=== PATIENT | female | born 1960 | race Two or more races ===

== ENCOUNTER 2016-11-12 14:24 | Emergency (ER) | payer MEDICAID ==
[~2016-11-12] VITALS: Ht 160 cm; Wt 63.5 kg
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
[2016-11-12 14:55] VITALS: BP 165/54
--- NOTE | 2016-11-12 16:23 | Diagnostic Imaging Report ---
Indication: PAIN Technique: Spiral acquisitions obtained through the cervical spine. No IV contrast utilized. Multiplanar reconstructions were generated. Total dose length product 268 mGycm. CTDIvol(s) 12 mGy. Dose reduction achieved using automated exposure control Comparison: None Findings: The bony alignment is normal. No acute fractures. No dislocations. Vertebral body heights are preserved. 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 The vertebral bodies and posterior elements of C2 and C3 are fused. There is partial ankylosis of the C5-6 disc, and complete fusion of the C5-6 facets. At C4-5, there is central posterior disc protrusion. This results in mild narrowing of the spinal canal, to 9 mm minimum AP dimension, slight impingement on the anterior aspect of the cord. There is mild bilateral neural foraminal stenosis, primarily due to facet degeneration. The disc space is preserved At C7-T1, there is mild narrowing of the left neural foramen. No significant disc bulge or protrusion or spinal stenosis. At the remaining levels, no significant disc bulge or protrusion, spinal stenosis, or neural foraminal stenosis. Abundant and prominent anterior and posterior triangle lymph nodes are seen bilaterally, measuring up to 16 mm long axis dimension. The patient is edentulous. Lung apices are clear. The thyroid is unremarkable. Impression: No acute bony trauma Multilevel segmentation anomalies, as described above Mild degenerative changes, as detailed level by level basis above Nonspecific prominent and abundant bilateral cervical lymph nodes. Correlate with clinical findings The CT scanner at [facility] is accredited by the [employer] and the scans are performed using protocols designed to limit radiation exposure to as low as reasonably achievable to attain images of sufficient resolution adequate for diagnostic evaluation.
--- NOTE | 2016-11-12 17:08 | Diagnostic Imaging Report ---
Indications: Head trauma, pain Technique: Spiral acquisitions obtained through the brain. Angled axial and coronal 5 x 5 mm slices were reconstructed. Total dose length product 1407 mGycm. CTDI vol(s) 70 mGy. Dose reduction achieved using automated exposure control Comparison: None Findings: There is bilateral frontal scalp soft tissue swelling. This extends to near the vertex No acute hemorrhage or edema. No mass effect nor midline shift. Normal finn-white differentiation. There is a 9 mm ossified lesion projecting off the inner table of the right posterior frontal skull, not resulting in any significant mass effect. The calvarium is intact. As well as orbits and sinuses are unremarkable. There is minimal right mastoid opacification. Impression: Negative for acute intracranial bleed or mass effect Evidence of right frontal scalp soft tissue trauma 9 mm ossific extra-axial lesion adjacent to the intertable of the right posterior frontal skull. 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
[2016-11-12] MEDS ORDERED: TYLENOL EXTRA500 MG ORAL (17:36)
[2016-11-12 18:19] VITALS: BP 158/57
[2016-11-12 19:21] VITALS: BP 165/54
== END 2016-11-12 18:00 | disposition home or self-care (01) ==
LOC: EDBD 14:24 → EMR 15:01
DX: S00.531A Contusion of lip, initial encounter (principal); S00.83XA Contusion of other part of head, initial encounter; V49.50XA Passenger injured in collision with unspecified motor vehicles in traffic accident, initial encounter; Y93.9 Activity, unspecified; Y92.414 Local residential or business street as the place of occurrence of the external cause; E11.9 Type 2 diabetes mellitus without complications; M50.221 Other cervical disc displacement at C4-C5 level; Z88.6 Allergy status to analgesic agent
CPT/HCPCS: 70450; 72125; 99284

== ENCOUNTER 2017-06-14 12:09 | Inpatient (IN) | payer MEDICAID ==
[~2017-06-14] VITALS: Ht 160 cm; Wt 72.1 kg
[2017-06-14] VITALS (8 sets, daily range): BP systolic 85–146; BP diastolic 46–86
[~2017-06-14 12:09] MED LIST: TYLENOL EXTRA500 MG ORAL
[2017-06-14] MEDS ORDERED: METOCLOPRAMIDE H5 M1 ORAL (12:29)
[2017-06-14] MEDS ORDERED: ASPIR 8181 MG ORAL (12:29)
[2017-06-14] MEDS ORDERED: FUROSEMIDE20 M1 ORAL (12:29)
[2017-06-14] MEDS ORDERED: CARVEDILOL3.125 MG ORAL (12:29)
[2017-06-14] MEDS ORDERED: Morphine Sulfate 4mg/ml Inj IVP ONE (12:30)
[2017-06-14] MEDS ORDERED: LORazepam Inj 2mg/ml 1ml IV ONE (12:30)
[2017-06-14 12:59] LABS: EOSINOPHILS % (AUTO) 2.1 % (0.0-3.0); HEMATOCRIT 37.6 % (37.0-47.0); HEMOGLOBIN 11.6 G/DL (12.0-16.0); LYMPHOCYTES % (AUTO) 20.8 % (20.0-45.0); MEAN CORPUSCULAR VOLUME 105 FL (80-99); MONOCYTES % (AUTO) 8.8 % (1.0-10.0); NEUTROPHILS % (AUTO) 67.4 % (45.0-75.0); PLATELET COUNT 251 K/UL (150-450); RED BLOOD COUNT 3.59 M/UL (4.20-5.40); RED CELL DISTRIBUTION WIDTH 14.1 % (11.6-14.8); WHITE BLOOD COUNT 6.9 K/UL (4.8-10.8)
--- NOTE | 2017-06-14 13:06 | Emergency Room Report ---
History of Present Illness General Chief Complaint: Abdominal Pain Source: Patient (CATIE RETANA M.D.) Present Illness HPI 57-year-old female presents ED for evaluation. Patient presenting with abdominal pain started today. Patient is distended abdomen. Patient has history of ascites and requires fluid to be drained from her abdomen periodically. States that on Thursday she missed her dialysis. His dialysis Thursday. States that last time did not drain her abdomen because her blood pressure was too low. Per triage blood pressure is low the field. Pain is sharp, 5/10, nonradiating. Denies chest pain or shortness of breath. No other aggravating relieving factors. Denies any other associated symptoms (CATIE RETANA M.D.) Allergies: Coded Allergies: CODEINE (Verified Allergy, Unknown, 11/12/16) Patient History Past Medical History: renal disease, dialysis Past Surgical History: none Pertinent Family History: none Social History: Denies: smoking, alcohol use, drug use Now: No Immunizations: UTD Reviewed Nursing Documentation: PMH: Agreed, PSxH: Agreed (CATIE RETANA M.D.) Nursing Documentation-PMH Hx Diabetes: Yes Hx Dialysis: Yes - MWF ([facility]) Review of Systems All Other Systems: negative except mentioned in HPI (CATIE RETANA M.D.) Physical Exam Vital Signs Date Time Temp Pulse Resp B/P (MAP) Pulse Ox O2 Delivery O2 Flow Rate FiO2 06/14/17 12:03 98.2 66 18 118/74 100 Room Air ([facility] Sp02 EP Interpretation: reviewed, normal General Appearance: no apparent distress, alert, GCS 15, non-toxic Head: normocephalic Eyes: bilateral eye normal inspection, bilateral eye PERRL ENT: normal ENT inspection Neck: normal inspection Respiratory: chest non-tender, lungs clear, normal breath sounds, speaking full sentences Cardiovascular #1: regular rate, rhythm, no edema Gastrointestinal: distended, tenderness Rectal: deferred Genitourinary: no CVA tenderness Musculoskeletal: normal inspection Neurologic: alert, oriented x3, responsive, motor strength/tone normal, sensory intact, speech normal Psychiatric: judgement/insight normal, memory normal, mood/affect normal, no suicidal/homicidal ideation Skin: normal inspection Lymphatic: normal inspection (CATIE RETANA M.D.) Medical Decision Making PA Attestation Dr. Retana is my supervising Physician whom patient management has been discussed with. (Andrew Johnson) Diagnostic Impression: Primary Impression: Ascites Qualified Codes: R18.8 - Other ascites Additional Impressions: ESRD (end stage renal disease) on dialysis Elevated troponin Hypotension Qualified Codes: I95.9 - Hypotension, unspecified ER Course Hospital Course 57-year-old female presents ED with abdominal distention and abdominal pain. missed dialysis Differential diagnoses include: MA/unstable angina, fluid overload, CHF exacerabation, hyperkalemia, uremia Clinical course Patient placed on stretcher. on monitoring manager. After initial history and physical I ordered labs, EKG, labs reviewed- BUN/Cr elevated. K 5.0. trop 0.745. No leukocytosis, hemoglobin /hematocrit stable EKG - NSR, no acute ischemic changes interpreted by me Patient denies chest pain. Elevated troponin likely troponin leak Patient initially hypotensive, improved with 250 mL bolus Case discussed with Dr. Malik and he agreed to accept the patient to his service for further care and support I. I feel this is a highly complex case requiring extensive working including EKG/Rhythm strip, Xray/CT/US, Blood/urine lab work, repeat exams while in ED, and administration of strong opiates/narcotics for pain control, admission to hospital or close patient follow up. Diagnosis - ascites, ESRD on dialysis, elevated troponin, hypotension admitted to telemetry in serious condition Labs Test 06/14/17 12:35 White Blood Count 6.9 K/UL (4.8-10.8) Red Blood Count 3.59 M/UL (4.20-5.40) Hemoglobin 11.6 G/DL (12.0-16.0) Hematocrit 37.6 % (37.0-47.0) Mean Corpuscular Volume 105 FL (80-99) Mean Corpuscular Hemoglobin 32.2 PG (27.0-31.0) Mean Corpuscular Hemoglobin Concent 30.8 G/DL (32.0-36.0) Red Cell Distribution Width 14.1 % (11.6-14.8) Platelet Count 251 K/UL (150-450) Mean Platelet Volume 6.8 FL (6.5-10.1) Neutrophils (%) (Auto) 67.4 % (45.0-75.0) Lymphocytes (%) (Auto) 20.8 % (20.0-45.0) Monocytes (%) (Auto) 8.8 % (1.0-10.0) Eosinophils (%) (Auto) 2.1 % (0.0-3.0) Basophils (%) (Auto) 1.0 % (0.0-2.0) Sodium Level 133 MMOL/L (136-145) Potassium Level 5.0 MMOL/L (3.5-5.1) Chloride Level 96 MMOL/L (98-107) Carbon Dioxide Level 22 MMOL/L (21-32) Anion Gap 16 mmol/L (5-15) Blood Urea Nitrogen 74 mg/dL (7-18) Creatinine 5.3 MG/DL (0.55-1.30) Estimat Glomerular Filtration Rate 8.3 mL/min (>60) Glucose Level 148 MG/DL (74-106) Calcium Level 8.0 MG/DL (8.5-10.1) Total Bilirubin 0.8 MG/DL (0.2-1.0) Aspartate Amino Transf (AST/SGOT) 17 U/L (15-37) Alanine Aminotransferase (ALT/SGPT) 21 U/L (12-78) Alkaline Phosphatase 360 U/L (46-116) Creatine Kinase MB 5.3 NG/ML (0.0-3.6) Troponin I 0.745 ng/mL (0.000-0.056) Total Protein 6.2 G/DL (6.4-8.2) Albumin 2.1 G/DL (3.4-5.0) Globulin 4.1 g/dL Albumin/Globulin Ratio 0.5 (1.0-2.7) Lipase 108 U/L (73-393) (CATIE RETANA M.D.) EKG Diagnostic Results EKG Time: 12:29 Rate: normal Rhythm: NSR ST Segments: no acute changes Other Impression Normal sinus rhythm Right bundle branch block plus right ventricular hypertrophy Possible lateral infarct, age undetermined Possible inferior infarct, age undetermined Abnormal ecg ASA given to the pt in ED: No PA Scribe Text Sandro Johnson PA-C (Andrew Johnson) Rate: normal Rhythm: NSR ST Segments: no acute changes ASA given to the pt in ED: No (CATIE RETANA M.D.) Rhythm Strip Diag. Results Rhythm Strip Time: 12:29 EP Interpretation: yes Rate: 67 Rhythm: NSR, no PVC's, no ectopy PA Scribe Text Sandro Johnson PA-C (Andrew Johnson) EP Interpretation: yes Rhythm: NSR, no PVC's, no ectopy (CATIE RETANA M.D.) Last Vital Signs Date Time Temp Pulse Resp B/P (MAP) Pulse Ox O2 Delivery O2 Flow Rate FiO2 06/14/17 12:13 97.9 65 14 111/58 97 Room Air (Andrew Johnson) Status: improved (CATIE RETANA M.D.) Disposition: ADMITTED INPATIENT Condition: Serious Referrals: NON PHYSICIAN (PCP) Andrew Johnson Jun 14, 2017 13:06 CATIE RETANA M.D. Jun 14, 2017 14:26
[2017-06-14 13:11] LABS: ANION GAP 16 mmol/L (5-15); BLOOD UREA NITROGEN 74 mg/dL (7-18); CARBON DIOXIDE 22 MMOL/L (21-32); CHLORIDE 96 MMOL/L (98-107); CREATININE 5.3 MG/DL (0.55-1.30); SODIUM 133 MMOL/L (136-145)
[2017-06-14] MEDS ORDERED: NS 250 ML IVPB ONE (13:15)
[2017-06-14 13:25] LABS: ALANINE AMINOTRANSFERASE 21 U/L (12-78); ALBUMIN 2.1 G/DL (3.4-5.0); ALBUMIN/GLOBULIN RATIO 0.5 (1.0-2.7); ALKALINE PHOSPHATASE 360 U/L (46-116); ASPARTATE AMINO TRANSFERASE 17 U/L (15-37); BILIRUBIN,TOTAL 0.8 MG/DL (0.2-1.0); CKMB 5.3 NG/ML (0.0-3.6)
[2017-06-14] MEDS: Heparin 5000 units/ml inj SUBQ SCH (23:09)
--- NOTE | 2017-06-14 23:30 | History and Physical Report ---
DATE OF ADMISSION: 06/14/2017 CHIEF COMPLAINT: Abdominal pain. HISTORY OF PRESENT ILLNESS: The patient is a 57-year-old female. She has a history of end-stage renal disease and ascites. She has a prior history of "heart problems" and apparently had a heart attack in 2009. She presented with complaints of abdominal pain. According to the patient, she has not been dialyzed for nearly a week because of hypotension. She requires every two weeks a paracentesis. Because of lower abdominal pain and worsening abdominal distention, she presented to the emergency room. She denies any fevers or chills. She has had no chest pain or shortness of breath. No diarrhea. No melena. No bright red blood per rectum. On evaluation in the emergency room, the patient's sodium is 133, her creatinine was 5.3. She did have an elevated troponin of 0.745. Hemoglobin was 11. The patient's vitals were otherwise stable. Because of her missed dialysis and abdominal pain, she is now admitted for further evaluation and care. PAST MEDICAL HISTORY: As above. PAST SURGICAL HISTORY: Includes history of left upper extremity AV fistula. CURRENT MEDICATIONS: Reconciled and reviewed. ALLERGIES: Include codeine. FAMILY HISTORY: Noncontributory. SOCIAL HISTORY: There is no known history of tobacco, ethanol, or drugs. REVIEW OF SYSTEMS: Negative except for abdominal pain and distention. PHYSICAL EXAMINATION: VITAL SIGNS: Temperature 97.6 pulse 63, respirations 19, and blood pressure 124/77. GENERAL: The patient is a well-developed female, in no apparent distress. She is awake, alert, and oriented x4. HEENT: Pupils are equal, round, and reactive to light. Sclerae anicteric. Oropharynx clear NECK: Supple. HEART: Regular rate and rhythm. LUNGS: Clear. ABDOMEN: Distended with fluid wave. She is tender on the right side. EXTREMITIES: No clubbing, cyanosis, or edema. There is a left upper extremity AV fistula. LABORATORY DATA: White count 7, hemoglobin 11, hematocrit 37, and platelets of 251,000. Sodium 133, potassium is 5, BUN is 74, creatinine is 5.3. Troponin 0.745. EKG results are currently pending. ASSESSMENT: This is a pleasant female, admitted with worsening abdominal distention secondary to fluid overload, rule out some component of cirrhosis, although the patient denies any liver problems. PLAN: Renal consultation for hemodialysis, serial troponins, therapeutic paracentesis in the morning. Vincent Malik M.D. DR: JAIMIE JOB#: [id number] CC:
[2017-06-15 00:34] VITALS: BP 125/64
[2017-06-15 04:26] VITALS: BP 130/62
[2017-06-15] MEDS: Morphine Sulfate 2mg/ml Inj IVP PRN ×2 (05:40→09:59)
[2017-06-15 08:00] VITALS: BP 121/64
[2017-06-15 08:09] LABS: CHOLESTEROL 140 MG/DL (< 200); HDL CHOLESTEROL 51 MG/DL (40-60); TRIGLYCERIDES 81 MG/DL (30-150)
[2017-06-15] MEDS: Heparin 5000 units/ml inj SUBQ SCH ×2 (09:00→21:12)
[2017-06-15] MEDS: Aspirin EC 81mg tab ORAL SCH (09:00)
[2017-06-15 12:00] VITALS: BP 115/59
[2017-06-15 16:00] VITALS: BP 140/72
--- NOTE | 2017-06-15 16:33 | Pre-Procedure Note/Attestation ---
Pre-Procedure Note/Attestation Complete Prior to Procedure Planned Procedure: not applicable Procedure Narrative: US guided paracentesis Indications for Procedure Pre-Operative Diagnosis: ascites Attestation I attest that I discussed the nature of the procedure; its benefits; risks and complications; and alternatives (and the risks and benefits of such alternatives ), prior to the procedure, with the patient (or the patient's legal service representative). I attest that, if there was a reasonable possibility of needing a blood transfusion, the patient (or the patient's legal service representative) was given the [facility] standardized written summary, pursuant to the Taran Mc Blood Safety Act ([place] Health and Safety Code # 1645, as amended). I attest that I re-evaluated the patient just prior to the surgery and that there has been no change in the patient's H&P, except as documented below: Juan Francisco Camacho M.D. Jun 15, 2017 16:33
--- NOTE | 2017-06-15 16:41 | Diagnostic Imaging Report ---
Indications: Ascites Technique: Ultrasound used to localize optimal puncture site. Sterile prepping and draping left lower quadrant. Local anesthesia with 1% lidocaine. Under real-time ultrasound guidance, puncture peritoneal space using paracentesis needle. Stylet removed. Catheter placed to vacuum bottle suction. Total 3.9 liters of fluid aspirated. Patient tolerated procedure well, without immediate complication. Findings: Followup sonography demonstrates complete resolution of peritoneal fluid. Impression: Successful ultrasound-guided paracentesis, yielding 3.9 liters of fluid
--- NOTE | 2017-06-15 17:53 | General Progress Note ---
Assessment/Plan Problem List: (1) Ascites ICD Codes: R18.8 - Other ascites SNOMED: [id number] Qualifiers: Qualified Codes: R18.8 - Other ascites (2) Hypotension ICD Codes: I95.9 - Hypotension, unspecified SNOMED: 82018770, [id number], [id number] Qualifiers: Qualified Codes: I95.9 - Hypotension, unspecified (3) Elevated troponin ICD Codes: R74.8 - Abnormal levels of other serum enzymes SNOMED: 673075513, [id number], [id number] (4) ESRD (end stage renal disease) on dialysis ICD Codes: N18.6 - End stage renal disease; Z99.2 - Dependence on renal dialysis SNOMED: 343793199, [id number], [id number] Status: stable Assessment/Plan paracentesis renal eval for HD monitor trop abd beth check ammonia level. Subjective ROS Limited/Unobtainable: No Constitutional: Reports: malaise, weakness HEENT: Reports: no symptoms Cardiovascular: Reports: no symptoms Respiratory: Reports: no symptoms Gastrointestinal/Abdominal: Reports: abdomen distended Genitourinary: Reports: no symptoms Neurologic/Psychiatric: Reports: pre-existing deficit Endocrine: Reports: no symptoms Hematologic/Lymphatic: Reports: no symptoms Allergies: Coded Allergies: CODEINE (Verified Allergy, Unknown, 11/12/16) All Systems: reviewed and negative except above Subjective no events, +abd pain and distention. Objective Last 24 Hour Vital Signs Date Time Temp Pulse Resp B/P (MAP) Pulse Ox O2 Delivery O2 Flow Rate FiO2 06/15/17 16:00 97.9 86 20 140/72 97 Room Air 06/15/17 12:00 98.1 72 18 115/59 97 Room Air 06/15/17 10:29 98.4 06/15/17 08:00 97.7 78 18 121/64 99 Room Air 06/15/17 08:00 77 06/15/17 04:26 98.4 75 22 130/62 97 Room Air 06/15/17 03:35 74 06/15/17 00:34 97.2 67 18 125/64 98 Room Air 06/15/17 00:00 67 06/14/17 22:16 70 06/14/17 22:00 97.2 71 18 146/86 98 Nasal Cannula 2.0 06/14/17 21:45 97.0 62 16 101/67 97 Nasal Cannula 2.0 06/14/17 20:56 97.0 62 16 101/67 97 Nasal Cannula 2.0 06/14/17 19:21 97.0 66 16 126/68 94 Room Air Intake and Output 06/14/17 06/15/17 19:00 07:00 Intake Total 250 ml 570 ml Output Total 0 ml Balance 250 ml 570 ml Intake Oral 0 ml 120 ml IV Total 250 ml 450 ml Output Urine Total 0 ml Laboratory Tests 06/15/17 06:50: Troponin I 0.582H, Triglycerides Level 81, Cholesterol Level 140, LDL Cholesterol 88, HDL Cholesterol 51, Cholesterol/HDL Ratio 2.7L, Thyroid Stimulating Hormone (TSH) 6.028H 06/15/17 10:30: Prothrombin Time 10.7, Prothromb Time International Ratio 1.0, Activated Partial Thromboplast Time 29 Height (Feet): 5 Height (Inches): 3.00 Weight (Pounds): 159 General Appearance: WD/WN, lethargic, confused Neck: supple Cardiovascular: normal rate Respiratory/Chest: lungs clear Abdomen: normal bowel sounds, non tender, soft, no organomegaly Edema: no edema noted Arm (L), no edema noted Arm (R), no edema noted Leg (L), no edema noted Leg (R), no edema noted Pedal (L), no edema noted Pedal (R), no edema noted Generalized JASVIR MUKHERJEE Jun 15, 2017 17:53
[2017-06-15 20:00] VITALS: BP 122/56
[2017-06-15] MEDS: LORazepam 1mg tab ORAL PRN (21:47)
[2017-06-16] VITALS: BP 134/69
[2017-06-16 04:00] VITALS: BP 138/69
[2017-06-16 08:00] VITALS: BP 119/58
[2017-06-16] MEDS: Aspirin EC 81mg tab ORAL SCH (09:04)
[2017-06-16] MEDS: Heparin 5000 units/ml inj SUBQ SCH ×2 (09:05→22:13)
--- NOTE | 2017-06-16 09:58 | General Progress Note ---
Assessment/Plan Problem List: (1) Ascites ICD Codes: R18.8 - Other ascites SNOMED: 478172100 Qualifiers: Qualified Codes: R18.8 - Other ascites (2) Hypotension ICD Codes: I95.9 - Hypotension, unspecified SNOMED: 29739653, 617894993, 302673637 Qualifiers: Qualified Codes: I95.9 - Hypotension, unspecified (3) Elevated troponin ICD Codes: R74.8 - Abnormal levels of other serum enzymes SNOMED: 479195984, 282793306, 978796265 (4) ESRD (end stage renal disease) on dialysis ICD Codes: N18.6 - End stage renal disease; Z99.2 - Dependence on renal dialysis SNOMED: 420597701, 767158343, 425451114 Status: stable, progressing Assessment/Plan paracentesis prn renal eval for HD monitor trop Subjective ROS Limited/Unobtainable: Yes Constitutional: Reports: malaise, weakness HEENT: Reports: no symptoms Cardiovascular: Reports: no symptoms Respiratory: Reports: no symptoms Gastrointestinal/Abdominal: Reports: abdomen distended Genitourinary: Reports: no symptoms Neurologic/Psychiatric: Reports: pre-existing deficit Endocrine: Reports: no symptoms Hematologic/Lymphatic: Reports: anemia Allergies: Coded Allergies: CODEINE (Verified Allergy, Unknown, 11/12/16) All Systems: reviewed and negative except above Subjective s/p paracentesis. still sleepy. awaiting HD Objective Last 24 Hour Vital Signs Date Time Temp Pulse Resp B/P (MAP) Pulse Ox O2 Delivery O2 Flow Rate FiO2 06/16/17 08:00 97.5 73 18 119/58 94 06/16/17 04:00 70 06/16/17 04:00 97.2 73 16 138/69 99 06/16/17 00:00 78 06/16/17 00:00 97.3 58 16 134/69 99 06/15/17 20:00 98.2 75 18 122/56 92 06/15/17 20:00 74 06/15/17 16:00 97.9 86 20 140/72 97 Room Air 06/15/17 16:00 87 06/15/17 12:00 78 06/15/17 12:00 98.1 72 18 115/59 97 Room Air 06/15/17 10:29 98.4 Intake and Output 06/15/17 06/16/17 19:00 07:00 Intake Total 360 ml Balance 360 ml Intake Oral 360 ml # Voids 1 # Bowel Movements 1 Laboratory Tests 06/15/17 10:30: Prothrombin Time 10.7, Prothromb Time International Ratio 1.0, Activated Partial Thromboplast Time 29 06/15/17 18:10: Ammonia 43H 06/16/17 07:05: Troponin I 0.471H Height (Feet): 5 Height (Inches): 3.00 Weight (Pounds): 159 Objective General Appearance: WD/WN, lethargic, confused Neck: supple Cardiovascular: normal rate Respiratory/Chest: lungs clear Abdomen: normal bowel sounds, non tender, soft, no organomegaly Edema: no edema noted Arm (L), no edema noted Arm (R), no edema noted Leg (L), no edema noted Leg (R), no edema noted Pedal (L), no edema noted Pedal (R), no edema noted Generalized JASVIR MUKHERJEE Jun 16, 2017 09:58
[2017-06-16 11:10] LABS: ALANINE AMINOTRANSFERASE 22 U/L (12-78); ALBUMIN 1.9 G/DL (3.4-5.0); ALBUMIN/GLOBULIN RATIO 0.5 (1.0-2.7); ALKALINE PHOSPHATASE 351 U/L (46-116); ANION GAP 18 mmol/L (5-15); ASPARTATE AMINO TRANSFERASE 20 U/L (15-37); BILIRUBIN,TOTAL 1.5 MG/DL (0.2-1.0); BLOOD UREA NITROGEN 90 mg/dL (7-18); CALCIUM 7.3 MG/DL (8.5-10.1); CARBON DIOXIDE 19 MMOL/L (21-32); CHLORIDE 95 MMOL/L (98-107); CREATININE 7.1 MG/DL (0.55-1.30); SODIUM 132 MMOL/L (136-145)
[2017-06-16 11:18] LABS: POTASSIUM 6.7 MMOL/L (3.5-5.1)
[2017-06-16 11:40] LABS: BILIRUBIN,DIRECT 1.1 MG/DL (0.0-0.3)
[2017-06-16] MEDS ORDERED: Sodium Polystyrene Sulfonate 15gm Powder ORAL ONE (11:45)
[2017-06-16 11:49] VITALS: BP 123/58
[2017-06-16] MEDS: LORazepam 1mg tab ORAL PRN ×2 (14:02→22:10)
[2017-06-16 16:00] VITALS: BP 139/59
--- NOTE | 2017-06-16 17:01 | Cardiology Report ---
APPROVED REPORT EXAM: Two-dimensional and M-mode echocardiogram with Doppler and color Doppler. INDICATION Acute myocard infarction M-Mode DIMENSIONS IVSd1.4 (0.7-1.1cm)Left Atrium (MM)4.8 (1.6-4.0cm) LVDd4.4 (3.5-5.6cm)Aortic Root2.7 (2.0-3.7cm) PWd1.1 (0.7-1.1cm)Aortic Cusp Exc.1.7 (1.5-2.0cm) LVDs3.1 (2.5-4.0cm) PWs1.1 cm Normal left ventricular chamber size, systolic function and wall motion. Left ventricular ejection fraction estimated to be 55 %. Mild ventricular hypertrophy. No evidence of pericardial effusion. Mild bi-atrial enlargement. Mild right ventricular enlargement. Moderate focal aortic valve sclerosis with adequate cusp excursion. Heavy thickened mitral valve leaflets with normal excursion. Heavy mitral annulus and aortic root calcification. Pulmonic valve not well visualized. Normal tricuspid valve structure. IVC dilated at 2.1 cm without physiological collapse, estimated RAP is 15 mmHg. Left ventricle D-shape pattern, suggestive of right ventricle volume overload. A color flow and spectral Doppler study was performed and revealed: Mild aortic insufficiency. Mild mitral regurgitation. Mitral inflow indicates increased left atrial pressure, suggestive restrictive pattern (Grade III). Moderate to severe tricuspid regurgitation. Tricuspid systolic velocities suggests peak right ventricular systolic pressure of 110-115 mmHg, consistent with severe pulmonary hypertension. Mild pulmonic regurgitation present.
--- NOTE | 2017-06-16 18:00 | Consultation ---
DATE OF CONSULTATION: 06/16/2017 NEPHROLOGY CONSULTATION CONSULTING PHYSICIAN: Pro Genao M.D. REFERRING PHYSICIAN: Vincent Malik M.D. REASON FOR CONSULTATION: End-stage renal disease. HISTORY OF PRESENT ILLNESS: The patient states she has been on dialysis for about six years. She also apparently had a myocardial infarction and a coronary artery bypass graft in 2009. She missed outpatient dialysis apparently because her blood pressure was low, now with hyperkalemia after missed dialysis with elevated troponin on this admission. The patient is a poor historian. PAST SURGICAL HISTORY: Include coronary artery bypass graft, gallbladder, and left upper arm AV fistula. CURRENT MEDICATIONS: Current medications in the hospital include aspirin, subcutaneous heparin, levothyroxine, lorazepam, morphine, and Kayexalate. Home medications, she could not list, but were given as Tylenol, aspirin, carvedilol, Lasix, and metoclopramide. ALLERGIES: Codeine. HABITS: She denies smoking or alcohol use. SYSTEM REVIEW: HEENT: She has decreased visual acuity. Hearing is good. ENDOCRINE: She is not aware of any diabetes or thyroid disease. PULMONARY: No asthma or TB. CARDIAC: No current chest pain or shortness of breath. History of a coronary artery bypass graft as above. GASTROINTESTINAL: History of some anorexia and recurrent ascites requiring recurrent paracentesis apparently every two weeks. She is not aware of history of hepatitis. GENITOURINARY: No dysuria or hematuria. NEUROLOGIC: She states she had a coma in the past, she is not sure why. She is not clear if she has had a stroke. She is unable to walk independently. PHYSICAL EXAMINATION: GENERAL: The patient is a chronically ill-appearing lady, in no acute distress. VITAL SIGNS: Temperature 97.3, pulse 74, respirations 18, and blood pressure 123/58. HEENT: Sclerae are nonicteric. Ocular motion is intact in all directions. Oral mucosa is moist. NECK: No adenopathy. LUNGS: Diminished breath sounds at the bases. No rales or rhonchi. HEART: Regular rhythm. I hear no murmur. ABDOMEN: Soft. There is moderate ascites. I am unable to feel liver or spleen. EXTREMITIES: Show 1+ edema. There is a large AV fistula in the left arm. NEUROLOGIC: She is alert and responsive. Ocular motion is intact in all directions. Smile symmetric. Tongue is midline. She moves all extremities. PERTINENT LABS: Today, sodium 132, potassium 6.7, BUN 90, and creatinine 7.1. The most recent 43. Troponin 0.471. Albumin is 1.9. Hemoglobin 11.6 and white count 6.9. IMPRESSION: 1. End-stage renal disease. 2. Hyperkalemia secondary to missed dialysis. 3. Recurrent ascites, etiology unclear. Hepatitis serology pending. She is now post paracentesis. 4. Debility. 5. Gait disorder. 6. Low serum albumin likely due to chronic liver disease. 7. History of coronary bypass surgery. 8. Elevated troponin on this admission. PLAN: The patient will have dialysis arranged. While waiting for dialysis, Kayexalate will be given. I will keep her on a low-sodium and low-potassium diet. Make further recommendations as the condition warrants. She should be followed up by her primary reservations sales agent after discharge. Pro Mcgregor M.D. DR: BREA JOB#: [id number] CC:
[2017-06-16 20:00] VITALS: BP 130/74
[2017-06-17] VITALS: BP 113/56
[2017-06-17] MEDS: Morphine Sulfate 2mg/ml Inj IVP PRN ×2 (00:29→04:48)
[2017-06-17 04:00] VITALS: BP 124/60
--- NOTE | 2017-06-17 07:52 | Nephrology Progress Note ---
Assessment/Plan Problem List: (1) Hyperkalemia (2) Ascites (3) Hypotension (4) Elevated troponin (5) ESRD (end stage renal disease) on dialysis Plan HD 06/17, bp stable, no distress Subjective Constitutional: Reports: weakness HEENT: Reports: no symptoms Genitourinary: Reports: no symptoms Neurologic/Psychiatric: Reports: pre-existing deficit Objective Objective Last 24 Hour Vital Signs Date Time Temp Pulse Resp B/P (MAP) Pulse Ox O2 Delivery O2 Flow Rate FiO2 06/17/17 04:58 74 06/17/17 04:00 97.0 74 16 124/60 99 Room Air 06/17/17 00:00 Nasal Cannula 2.0 28 06/17/17 00:00 99.0 76 16 113/56 95 Room Air 06/17/17 00:00 97 Nasal Cannula 2.0 28 06/16/17 23:40 75 06/16/17 20:52 77 06/16/17 20:00 97.7 74 15 130/74 91 06/16/17 16:00 96.8 73 18 139/59 96 06/16/17 16:00 74 06/16/17 12:00 75 06/16/17 11:49 97.3 74 18 123/58 100 06/16/17 08:00 72 06/16/17 08:00 97.5 73 18 119/58 94 Intake and Output 06/16/17 06/17/17 19:00 07:00 Intake Total 710 ml 240 ml Balance 710 ml 240 ml Intake Oral 710 ml 240 ml # Bowel Movements 1 4 Laboratory Tests 06/16/17 10:00: Sodium Level 132L, Potassium Level 6.7*H, Chloride Level 95L, Carbon Dioxide Level 19L, Anion Gap 18H, Blood Urea Nitrogen 90H, Creatinine 7.1H, Estimat Glomerular Filtration Rate 5.9, Glucose Level 106, Calcium Level 7.3L, Total Bilirubin 1.5H, Direct Bilirubin 1.1H, Aspartate Amino Transf (AST/SGOT) 20, Alanine Aminotransferase (ALT/SGPT) 22, Alkaline Phosphatase 351H, Total Protein 5.7L, Albumin 1.9L, Globulin 3.8, Albumin/Globulin Ratio 0.5L, Hepatitis B Surface Antigen [Pending], Hepatitis B Surface Antibody [Pending], Hepatitis C Antibody [Pending], HIV (1&2) Antibody Rapid Negative Height (Feet): 5 Height (Inches): 3.00 Weight (Pounds): 159 General Appearance: no apparent distress, obese EENT: normal ENT inspection Neck: normal alignment Cardiovascular: normal rate, regular rhythm Respiratory/Chest: lungs clear Abdomen: soft Extremities: moderate edema Neurologic: load out supervisor II-XII grossly normal MICHELINE BALDWIN Jun 17, 2017 07:52
--- NOTE | 2017-06-17 08:14 | General Progress Note ---
Assessment/Plan Problem List: (1) Ascites ICD Codes: R18.8 - Other ascites SNOMED: [id number] Qualifiers: Qualified Codes: R18.8 - Other ascites (2) Hypotension ICD Codes: I95.9 - Hypotension, unspecified SNOMED: 94070498, 822617233, 401137046 Qualifiers: Qualified Codes: I95.9 - Hypotension, unspecified (3) Elevated troponin ICD Codes: R74.8 - Abnormal levels of other serum enzymes SNOMED: 603841394, 873637842, 299789550 (4) ESRD (end stage renal disease) on dialysis ICD Codes: N18.6 - End stage renal disease; Z99.2 - Dependence on renal dialysis SNOMED: 841067541, 110465106, 832116381 Status: stable, progressing Status Narrative dc planning after HD pt/ot eval elevated trop false elevation due to renal failure- no sxs. Assessment/Plan paracentesis prn renal eval for HD monitor trop Subjective ROS Limited/Unobtainable: No Constitutional: Reports: weakness HEENT: Reports: no symptoms Cardiovascular: Reports: no symptoms Respiratory: Reports: no symptoms Gastrointestinal/Abdominal: Reports: no symptoms Genitourinary: Reports: no symptoms Neurologic/Psychiatric: Reports: no symptoms Endocrine: Reports: no symptoms Hematologic/Lymphatic: Reports: no symptoms Allergies: Coded Allergies: CODEINE (Verified Allergy, Unknown, 11/12/16) All Systems: reviewed and negative except above Subjective s/p paracentesis. more alert. no cp/sob. awaiting HD Objective Last 24 Hour Vital Signs Date Time Temp Pulse Resp B/P (MAP) Pulse Ox O2 Delivery O2 Flow Rate FiO2 06/17/17 04:58 74 06/17/17 04:00 97.0 74 16 124/60 99 Room Air 06/17/17 00:00 Nasal Cannula 2.0 28 06/17/17 00:00 99.0 76 16 113/56 95 Room Air 06/17/17 00:00 97 Nasal Cannula 2.0 28 06/16/17 23:40 75 06/16/17 20:52 77 06/16/17 20:00 97.7 74 15 130/74 91 06/16/17 16:00 96.8 73 18 139/59 96 06/16/17 16:00 74 06/16/17 12:00 75 06/16/17 11:49 97.3 74 18 123/58 100 Intake and Output 06/16/17 06/17/17 19:00 07:00 Intake Total 710 ml 240 ml Balance 710 ml 240 ml Intake Oral 710 ml 240 ml # Bowel Movements 1 4 Laboratory Tests 06/16/17 10:00: Sodium Level 132L, Potassium Level 6.7*H, Chloride Level 95L, Carbon Dioxide Level 19L, Anion Gap 18H, Blood Urea Nitrogen 90H, Creatinine 7.1H, Estimat Glomerular Filtration Rate 5.9, Glucose Level 106, Calcium Level 7.3L, Total Bilirubin 1.5H, Direct Bilirubin 1.1H, Aspartate Amino Transf (AST/SGOT) 20, Alanine Aminotransferase (ALT/SGPT) 22, Alkaline Phosphatase 351H, Total Protein 5.7L, Albumin 1.9L, Globulin 3.8, Albumin/Globulin Ratio 0.5L, Hepatitis B Surface Antigen [Pending], Hepatitis B Surface Antibody [Pending], Hepatitis C Antibody [Pending], HIV (1&2) Antibody Rapid Negative Height (Feet): 5 Height (Inches): 3.00 Weight (Pounds): 159 Objective General Appearance: WD/WN, lethargic, confused Neck: supple Cardiovascular: normal rate Respiratory/Chest: lungs clear Abdomen: normal bowel sounds, non tender, soft, no organomegaly Edema: no edema noted Arm (L), no edema noted Arm (R), no edema noted Leg (L), no edema noted Leg (R), no edema noted Pedal (L), no edema noted Pedal (R), no edema noted Generalized JASVIR MUKHERJEE Jun 17, 2017 08:14
[2017-06-17 09:00] VITALS: BP 127/68
[2017-06-17] MEDS: Heparin 5000 units/ml inj SUBQ SCH (09:00)
[2017-06-17] MEDS: Aspirin EC 81mg tab ORAL SCH (11:59)
[2017-06-17 12:00] VITALS: BP 119/48
[2017-06-17] MEDS ORDERED: RESTORIL7.5 MG ORAL (15:46)
--- NOTE | 2017-06-18 15:58 | Discharge Summary ---
Discharge Summary Hospital Course Date of Admission Jun 14, 2017 at 20:46 Date of Discharge Jun 17, 2017 at 15:20 Admitting Diagnosis ascites, esrd HPI Margarita Montoya is a 57 year old female who was admitted on Jun 14, 2017 at 20:46 for Ascites/End Stage Renal Disease Hospital Course [id number] Discharge Discharge Disposition Patient was discharged to Home (01) Discharge Diagnoses: Diane Guido NP Jun 18, 2017 15:58
--- NOTE | 2017-06-18 23:45 | Discharge Summary 2 SIG ---
DATE OF ADMISSION: 06/14/2017 DATE OF DISCHARGE: 06/17/2017 STAMP MAKER: Pro Mcgregor M.D. BRIEF HOSPITAL COURSE: The patient is a 57-year-old female with history of end-stage renal disease and ascites. She has a prior history of "heart problems" and apparently had a heart attack in 2009. She presented with complaints of abdominal pain and stated that she had not been dialyzed for nearly a week because of hypotension. She required every two weeks paracenteses. On evaluation at ED, sodium was 133 and creatinine was 5.3. She had elevated troponin level 0.745. Hemoglobin was 11. She was admitted due to worsening abdominal distention secondary to fluid overload. Troponins were monitored. On 06/13/2017, she underwent ultrasound-guided paracentesis yielding 3.9 liters of fluid. She had an echocardiogram done that showed ejection fraction of 55%. There was normal left ventricular size, function, and wall motion and RVSP of 110 consistent with severe pulmonary hypertension. She was given hemodialysis. She was continued on levothyroxine and was given Ecotrin. Troponin levels are unreliable, may be a false elevation due to renal failure. The patient was not complaining of any symptoms. She had an episode of hyperkalemia and was given Kayexalate. She was given PT and OT and was eventually discharged home. FINAL DIAGNOSES: 1. Ascites status post paracentesis. 2. End-stage renal disease. 3. Elevated troponin, possibly false elevation due to renal failure. 4. Hyperkalemia. 5. Severe pulmonary hypertension. DISPOSITION: The patient was discharged home. DISCHARGE MEDICATIONS: Refer to medication list. DISCHARGE INSTRUCTIONS: Follow up with PMD in a week. Vincent Malik M.D. I have been assigned to dictate discharge summary on this account and I was not involved in the patient's management. Diane Guido N.P. DR: KATHLEEN/ JOB#: [id number] CC: ANAIS
--- NOTE | 2017-06-29 14:04 | Cardiology Report ---
APPROVED REPORT EKG Measurement Heart [id number] Normal sinus rhythm Right bundle branch block, plus right ventricular hypertrophy Possible Lateral infarct, age undetermined Possible Inferior infarct, age undetermined Abnormal ECG
== END 2017-06-17 15:20 | disposition home or self-care (01) ==
LOC: EDBD 12:09 → EMR 12:15 → 4W 12:43 → UNDOADMIN 12:43 → EDBEDREQ 13:11 → 2E 20:46
PROC: 0W9G3ZZ Drainage of Peritoneal Cavity, Percutaneous Approach (ICD-10-PCS; principal; 2017-06-15)
PROC: 5A1D70Z Performance of Urinary Filtration, Intermittent, Less than 6 Hours Per Day (ICD-10-PCS; 2017-06-17)
DX: R18.8 Other ascites (principal); I95.9 Hypotension, unspecified; N18.6 End stage renal disease; Z99.2 Dependence on renal dialysis; R10.9 Unspecified abdominal pain; Z88.6 Allergy status to analgesic agent; Z95.1 Presence of aortocoronary bypass graft; I25.2 Old myocardial infarction; E87.5 Hyperkalemia; R26.9 Unspecified abnormalities of gait and mobility
CPT/HCPCS: 36415; 76942; 80053; 80061; 82140; 82248; 82553; 83690; 84443; 84484; 85025; 85610; 85730; 86703; 86803; 87081; 87340; 87517; 93005; 93306; 94760; 99285